=== PATIENT | female | born 1975 | race Two or more races ===

== ENCOUNTER 2022-04-10 22:26 | Emergency (ER) | payer MEDICAID ==
[~2022-04-10] VITALS: Ht 165.1 cm; Wt 77.1 kg
[2022-04-10 23:07] VITALS: BP 129/84
--- NOTE | 2022-04-10 23:10 | NUR ---
TO ER BED 11. BIBSELF C/O MACKEY WITH N/V STARTED AT 12PM. PT IS ALERT AND ORIENTED. RR EVEN AND NON LABORED. CONNECTED TO POX AND HEART MONITOR. NO BILATERAL WEAKNESS IN EXTREMITIES. AWAITING MD BATRES
[2022-04-10] MEDS ORDERED: METOCLOPRAMIDE HCL 10 MG/2 ML VIAL ONE (23:41)
[2022-04-10] MEDS ORDERED: KETOROLAC TROMETHAMINE INJ 30 MG/ML VIAL ONE (23:41)
[2022-04-10] MEDS ORDERED: diphenhydrAMINE HCL 50 MG/ML VIAL ONE (23:41)
[2022-04-11] MEDS ORDERED: KETOROLAC TROMETHAMINE INJ 30 MG/ML VIAL IV ONE
[2022-04-11] MEDS ORDERED: METOCLOPRAMIDE HCL 10 MG/2 ML VIAL IV ONE
[2022-04-11] MEDS ORDERED: diphenhydrAMINE HCL 50 MG/ML VIAL IV ONE
[2022-04-11] MEDS ORDERED: IV NS 0.9% 1,000 ML BAG IV ONE
--- NOTE | 2022-04-11 00:12 | NUR ---
Uyen richardson in [facility] - 04/11/22 at 0019 by ANTONI BLOOD COLLECTED AND SENT TO LAB
--- NOTE | 2022-04-11 00:12 | NUR ---
IV LINE ESTABLISHED, LAC20G
[2022-04-11] MEDS ORDERED: METO-295 PO (01:32)
[2022-04-11] MEDS ORDERED: IBUP-1955 PO (01:32)
[2022-04-11] MEDS ORDERED: LEVO112T5 GT (01:33)
== END 2022-04-11 01:38 | disposition home or self-care (01) ==
LOC: ER 22:30
DX: G43.909 Migraine, unspecified, not intractable, without status migrainosus (principal); E03.9 Hypothyroidism, unspecified; Z88.8 Allergy status to other drugs, medicaments and biological substances
CPT/HCPCS: 99284; 96374; 96375; 96361; J1200; J2765; J1885; J7030 ×2

== ENCOUNTER 2022-11-17 19:44 | Emergency (ER) | payer BC, MEDICAID ==
[~2022-11-17] VITALS: Ht 160 cm; Wt 76.7 kg
[~2022-11-17 19:44] MED LIST: IBUP-1955 PO; LEVO112T5 GT; METO-295 PO
--- NOTE | 2022-11-17 20:52 | NUR ---
BIBS FOR MIGRAINE H/A. HAS HAD MIGRAINES BEFORE BUT THIS ONE FELT WORSE. HAS HAD CT OF HEAD FOR MIGRAINE IN THE PAST MONTH.
[2022-11-17] MEDS ORDERED: diphenhydrAMINE HCL 50 MG/ML VIAL IV ONE (21:30)
[2022-11-17] MEDS ORDERED: PROCHLORPERAZINE EDISYLATE 10 MG/2 ML VIAL IVP ONE (21:30)
[2022-11-17] MEDS ORDERED: IV NS 0.9% 1,000 ML BAG IV ONE (21:30)
[2022-11-17] MEDS ORDERED: ACETAMINOPHEN ES 500 MG TABLET PO ONE (21:30)
[2022-11-17] MEDS ORDERED: ACETAMINOPHEN ES 500 MG TABLET ONE (21:39)
[2022-11-17] MEDS ORDERED: PROCHLORPERAZINE EDISYLATE 10 MG/2 ML VIAL ONE (21:39)
[2022-11-17] MEDS ORDERED: diphenhydrAMINE HCL 50 MG/ML VIAL ONE (21:39)
--- NOTE | 2022-11-17 21:40 | NUR ---
LEFT AC 20G ESTABLISHED, BLOOD SAMPLE HANDED OFF TO RN ACUTE CARE AT BEDSIDE
[2022-11-17 21:55] LABS: BASOPHILS % (AUTO) 0.5 % (0.0-2.0); EOSINOPHILS % (AUTO) 2.9 % (0.0-6.0); HEMATOCRIT 37 % (33-45); HEMOGLOBIN 12.1 g/dL (11.5-14.8); LYMPHOCYTES % (AUTO) 25.5 % (20.0-44.0); MEAN CORPUSCULAR HGB CONC 32 g/dl (31.0-36.0); MEAN CORPUSCULAR VOLUME 87 fL (82-100); MONOCYTES # (AUTO) 0.4 K/uL (0.1-1.30); MONOCYTES % (AUTO) 4.8 % (2.0-12.0); NEUTROPHILS # (AUTO) 5.1 K/uL (1.8-8.9); NEUTROPHILS % (AUTO) 66.3 % (43.0-81.0); PLATELET COUNT (AUTO) 309 K/uL (150-450); WHITE BLOOD COUNT (AUTO) 7.7 K/uL (4.3-11.0)
--- NOTE | 2022-11-17 21:57 | NUR ---
URINE SMAPLE COLLECTED AND SENT TO LAB
[2022-11-17 22:08] LABS: CALCIUM, SERUM 9.3 mg/dL (8.5-10.1); CREATININE 0.6 mg/dL (0.6-1.3); POTASSIUM 3.6 mmol/L (3.5-5.1)
--- NOTE | 2022-11-17 23:29 | NUR ---
Patient discharged to home in stable condition. Written and verbal after care instructions given. Patient verbalizes understanding of instruction.
--- NOTE | 2022-11-17 23:29 | NUR ---
IV removed. Catheter intact and site benign. Pressure and 4x4 applied to site. No bleeding noted.
[2022-11-17 23:30] VITALS: BP 127/80; TEMP 97.8; O2SAT 95
== END 2022-11-17 23:31 | disposition home or self-care (01) ==
LOC: ER 19:48
DX: R51.9 Headache, unspecified (principal); E03.9 Hypothyroidism, unspecified; Z79.899 Other long term (current) drug therapy; Z88.1 Allergy status to other antibiotic agents
CPT/HCPCS: 99284; 96374; 96361; 96375; 85025; 80048; 84703; 36415; J0780; J1200; J7030

== ENCOUNTER 2024-09-24 17:52 | Emergency (ER) | payer BC ==
[~2024-09-24] VITALS: Ht 160 cm; Wt 69.9 kg
[2024-09-24] MEDS ORDERED: KETOROLAC TROMETHAMINE INJ 30 MG/ML VIAL ONE (18:55)
[2024-09-24] MEDS ORDERED: diphenhydrAMINE HCL 50 MG CAPSULE ONE (18:55)
[2024-09-24] MEDS ORDERED: METOCLOPRAMIDE HCL 10 MG TABLET ONE (18:56)
[2024-09-24] MEDS: KETOROLAC TROMETHAMINE INJ 30 MG/ML VIAL IM ONE (19:05)
[2024-09-24] MEDS: METOCLOPRAMIDE HCL 10 MG TABLET PO ONE (19:06)
[2024-09-24] MEDS: diphenhydrAMINE HCL 25 MG CAPSULE PO ONE (19:06)
[2024-09-24] MEDS ORDERED: SUMA50TA PO (20:04)
[2024-09-24] MEDS ORDERED: METO-295 PO (20:04)
[2024-09-24] MEDS ORDERED: DIPH25CA83 PO (20:04)
[2024-09-24 20:15] VITALS: BP 115/74; TEMP 98.1; O2SAT 98
== END 2024-09-24 20:16 | disposition home or self-care (01) ==
LOC: ER 17:58
DX: G43.009 Migraine without aura, not intractable, without status migrainosus (principal); R11.0 Nausea; R42 Dizziness and giddiness; E03.9 Hypothyroidism, unspecified; Z88.8 Allergy status to other drugs, medicaments and biological substances; Z91.09 Other allergy status, other than to drugs and biological substances
CPT/HCPCS: 99283; 96372; J1885; Q0163; J8597